=== PATIENT | male | born 1955 | race Caucasian/White ===

== ENCOUNTER 2019-10-22 07:40 | Inpatient (IN) | payer MEDICARE ==
[2019-10-17 08:58] LABS: BASOPHILS # (AUTO) 0.1 (0.0-0.1); BASOPHILS % 0.4 % (0.0-1.0); EOSINOPHILS # (AUTO) 0.4 (0.0-0.4); EOSINOPHILS % 3.3 % (0.0-6.0); HEMATOCRIT 40.8 % (38.2-49.6); HEMOGLOBIN 13.4 g/dL (14.0-18.0); LYMPHOCYTES # (AUTO) 1.8 (1.0-3.2); LYMPHOCYTES % 15.2 % (18.0-39.1); MEAN CORPUSCULAR HEMOGLOBIN 30.7 pg (28-32); MEAN CORPUSCULAR HGB CONC 32.8 g/dL (31-35); MEAN CORPUSCULAR VOLUME 93.4 fL (81-99); MONOCYTES # (AUTO) 1.2 (0.2-0.8); MONOCYTES % 9.8 % (4.4-11.3); NEUTROPHILS # (AUTO) 8.6 (2.1-6.9); NEUTROPHILS % 70.8 % (38.7-80.0); PLATELET COUNT 209 x10e3/uL (140-360); RED BLOOD COUNT 4.37 x10e6/uL (4.3-5.7); RED CELL DISTRIBUTION WIDTH 13.8 % (11.7-14.4)
[2019-10-17 09:14] LABS: ANION GAP 13.5 mmol/L (8-16); BLOOD UREA NITROGEN 14 mg/dL (7-26); BUN/CREATININE RATIO 14 (6-25); CALCIUM 9.3 mg/dL (8.4-10.2); CARBON DIOXIDE 24 mmol/L (22-29); CHLORIDE 101 mmol/L (98-107); CREATININE, SERUM 1.01 mg/dL (0.72-1.25); EST GLOMERULAR FILTRATION RATE > 60 ML/MIN (60-); GLUCOSE 131 mg/dL (74-118); POTASSIUM 4.5 mmol/L (3.5-5.1); SODIUM 134 mmol/L (136-145)
--- NOTE | 2019-10-17 10:01 | Diagnostic Imaging Report ---
EXAM: CHEST 2 VIEWS DATE: 10/17/2019 9:13 AM INDICATION: Preoperative evaluation COMPARISON: None FINDINGS: The trachea is midline. The lungs are symmetrically expanded without evidence for large focal consolidation, pneumothorax, or significant pleural effusion. The cardiomediastinal silhouette and pulmonary vasculature are within normal limits. No acute osseous abnormality is identified. The surrounding soft tissues are unremarkable. IMPRESSION: No acute cardiopulmonary process identified. Signed by: Dr. Ric Reynaga MD on 10/17/2019 9:57 AM
[~2019-10-22] VITALS: Ht 177.8 cm; Wt 138.8 kg
[~2019-10-22 07:40] MED LIST: ALLOPURINOL300 MG PO; AMIODARONE HCL200 MG PO; AMITIZA24 MCG PO; AMLODIPINE BESY10 MG PO; BUPIVACAINE 0.25% 30ML SDV INJ ONE; CARTIA XT240 MG PO; ELIQUIS5 MG PO; FUROSEMIDE40 MG PO; LISINOPRIL10 MG PO; LOVASTATIN20 MG PO; LYRICA100 MG PO; METFORMIN HCL500 M2 PO; TRELEGY ELLIPT1 EACH INH; TRILOGY INH
[2019-10-22] MEDS ORDERED: CEFAZOLIN SOD 1 GM/NS 50ML 100 ML IV ONE (08:11)
[2019-10-22] MEDS ORDERED: ONDANSETRON HCL INJ 2MG/ML 2ML 2 MG/ML VIAL IV PRN (10:00)
[2019-10-22] MEDS ORDERED: SCOPOLAMINE 1.5 MG PATCH TOP SCH (10:00)
[2019-10-22] MEDS ORDERED: FENTANYL CITRATE/PF 100MCG/2 ML INJ ONE ×2 (10:19→14:15)
[2019-10-22] MEDS ORDERED: ONDANSETRON HCL INJ 2MG/ML 2ML 2 MG/ML VIAL ONE ×2 (11:05→14:28)
[2019-10-22] MEDS ORDERED: PROMETHAZINE HCL (IM) 25 MG/ML VIAL IM ONE (11:05)
--- OUTSIDE RECORDS SUMMARY | 2019-10-22 11:52 | XMS REPORT | Continuity of Care Document ---
Author Author [facility] Organization [facility] Address [address] [place] [address] Phone Unavailable Care Team Providers Care [employer] Name Role Phone Geoffrey VELEZ Attphys Unavailable Payers Payer Name Policy Type Policy Number Effective Date Expiration Date S ource Problems This patient has no known problems. Allergies, Adverse Reactions, Alerts Allergy Name Allergy Type Status Severity Reaction(s) Onset Date Inacti ve Date Treating Clinician Comments Source No Known Allergies DA Active U 2018-10-15 00:00:00 [facility] Medications This patient has no known medications. Procedures This patient has no known procedures. Encounters Start Date/Time End Date/Time Encounter Type Admission Type Attendi [facility] [[email or web address] Care Department Encounter ID Source 2019-03-23 10:42:00 2019-03-23 10:42:00 Outpatient [facility] [address] [facility] Results Test Description Test Time Test Comments Results Result Comments Source CHEST 2 VIEWS 2019-10-17 09:57:00 [facility] [address] [place], [place] [address] Patient Name: HALEY ROACH SR MR #: [id number] : 1955 Age/Sex: 64/M Req #: [id number] Adm Physician: Ordered by: GRACE VELEZ MD Report #: [id number] Location: OR Room/Bed: Procedure: [id number] DX/CHEST 2 VIEWS Exam Date: 10/17/19 Exam Time: 912 REPORT STATUS: Signed EXAM: CHEST 2 VIEWS DATE: 10/17/2019 9:13 AM INDICATION: Preoperative evaluation COMPARISON: None FINDINGS: The trachea is midline. The lungs are symmetrically expanded without evidence for large focal consolidation, pneumothorax, or significant pleural effusion. The cardiomediastinal silhouette and pulmonary vasculature are within normal limits. No acute osseous abnormality is identified. The surrounding soft tissues are unremarkable. IMPRESSION: No acute cardiopulmonary process identified. Signed by: Dr. Ric Reynaga MD on 10/17/2019 9:57 AM Dictated By: RIC REYNAGA MD 6 Transcribed By: DONTE on 10/17/19956 COPY TO: GRACE VELEZ MD GLUBED 2018-12-11 09:53:00 Test Item GLUBED (test code = GLUBED) 109 MG/DL 70-110 N Performed by certified hot box operator at [facility] [id number] 07:01:00* Test Item Value Reference Range Interpretation Comments GLUBED (test code = GLUBED) 109 MG/DL 70-110 N Performed by certified hot box operator at [facility] - XR CHEST 2 [id number] 10:41:00 FAX: Jevon Bar MD [phone] [place]: St: PRE FAX: Elinor Henry [phone] FAX: Binta James Name: HALEY ROACH [facility] [place] : 1955 Age/S: 63/M [address] [place] [address] Unit #: [id number] Loc: [place] [address] Phys: Binta James NP Acct: [id number] Dis Date: Status: PRE SDC PH ONE #: [phone] Exam Date: 12/08/2018 1039 FAX #: [phone] Reason: PRE-OP RFA EXAMS: CPT CODE: [id number] XR CHEST 2 V 08000 2 view chest x- ray performed December 08, 2018. COMPARISON: November 24, 2018. CLINICAL HISTORY: PRE-OP RFA. DISCUSSION: 2 views/ films of the chest are submitted. Lungs are clear bilaterally. Cardiomed iastinal silhouette is normal. Osseous structures are within normal limits . IMPRESSION: Normal Chest X-ray. Electron ically Signed by Woody Harkins on 12/08/2018 at 1041 Reported and signed by: Angie Harkins M.D. CC: Jevon Bar MD; Elinor Alexander MD; Binta Escobar Technologist: RT Nereida(Jung) Trnscrd Date/Time/By: 12/08/2018 (1041) : By : BridgetNMG Orig Print D/T: S: 12/08/2018 (7839) PAGE 1 Signed Report BASIC METABOLIC [id number] 10:40:00* Test Item Value Reference Range Interpretation Comments SODIUM (test code = NA) 135 mEq/L 134-147 N POTASSIUM (test code = K) 4.0 mEq/L 3.4-5.0 N CHLORIDE (test code = CL) 98 mEq/L 100-108 L CARBON DIOXIDE (test code = CO2) 30 mEq/L 21-33 N ANION GAP (test code = GAP) 11 0-20 N GLUCOSE (test code = GLU) 219 mg/dL 70-110 H BLOOD UREA NITROGEN (test code = BUN) 20 mg/dL 7-18 H GLOMERULAR FILTRATION RATE (test code = GFR) 61.3 80-90 L Units of measure = ml/min/1.73 m2 CREATININE (test code = CREAT) 1.2 mg/dL 0.6-1.3 N CALCIUM (test code = CA) 8.6 mg/dL 8.0-10.5 N BASIC METABOLIC [id number] 10:30:00* Test Item Value Reference Range Interpretation Comments SODIUM (test code = NA) 135 mEq/L 134-147 N POTASSIUM (test code = K) 4.0 mEq/L 3.4-5.0 N CHLORIDE (test code = CL) 98 mEq/L 100-108 L CARBON DIOXIDE (test code = CO2) 30 mEq/L 21-33 N ANION GAP (test code = GAP) 11 0-20 N GLUCOSE (test code = GLU) 219 mg/dL 70-110 H BLOOD UREA NITROGEN (test code = BUN) 20 mg/dL 7-18 H GLOMERULAR FILTRATION RATE (test code = GFR) 80-90 CREATININE (test code = CREAT) mg/dL 0.6-1.3 CALCIUM (test code = CA) 8.6 mg/dL 8.0-10.5 N CBC W/AUTO [id number] 10:18:00* Test Item Value Reference Range Interpretation Comments WHITE BLOOD CELL (test code = WBC) 11.57 x10 3/uL 4.5-11.0 H RED BLOOD CELL (test code = RBC) 4.05 x10 6/uL 4.00-5.60 N HEMOGLOBIN (test code = HGB) 12.5 g/dL 12.5-16.9 N HEMATOCRIT (test code = HCT) 38.8 % 37.5-50.7 N MEAN CELL VOLUME (test code = MCV) 95.8 fL 81.0-99.0 N MEAN CELL HGB (test code = MCH) 30.9 pg 27.0-33.0 N MEAN CELL HGB CONCETRATION (test code = MCHC) 32.2 g/dL 33.0-37. 0 L RED CELL DISTRIBUTION WIDTH CV (test code = RDW) 14.3 % 11.5- 14.5 N RED CELL DISTRIBUTION WIDTH SD (test code = RDW-SD) 50.4 fL 37 .0-54.0 N PLATELET COUNT (test code = PLT) 186 x10 3/uL 150-400 N MEAN PLATELET VOLUME (test code = MPV) 10.2 fL 7.0-9.0 H NEUTROPHIL % (test code = NT%) 73.2 % 56.0-77.0 N IMMATURE GRANULOCYTE % (test code = IG%) 0.8 % 0.0-2.0 N LYMPHOCYTE % (test code = LY%) 18.0 % 14.0-32.0 N MONOCYTE % (test code = MO%) 7.3 % 4.8-9.0 N EOSINOPHIL % (test code = EO%) 0.5 % 0.3-3.7 N BASOPHIL % (test code = BA%) 0.2 % 0.0-2.0 N NUCLEATED RBC % (test code = NRBC%) 0.0 % 0-0 N NEUTROPHIL # (test code = NT#) 8.47 x10 3/uL 2.0-7.6 H IMMATURE GRANULOCYTE # (test code = IG#) 0.09 x10 3/uL 0.00-0.03 H LYMPHOCYTE # (test code = LY#) 2.08 x10 3/uL 1.0-3.8 N MONOCYTE # (test code = MO#) 0.85 x10 3/uL 0.1-0.8 H EOSINOPHIL # (test code = EO#) 0.06 x10 3/uL 0.0-0.2 N BASOPHIL # (test code = BA#) 0.02 x10 3/uL 0.0-0.2 N NUCLEATED RBC # (test code = NRBC#) 0.00 x10 3/uL 0.0-0.1 N MANUAL DIFF REQUIRED (test code = MDIFF) NO [id number] 12:07:00* Test Item Value Reference Range Interpretation Comments GLUBED (test code = GLUBED) 165 mg/dL 70-110 H BASIC METABOLIC [id number] 08:04:00* Test Item Value Reference Range Interpretation Comments SODIUM (test code = NA) 142 mmol/l 134.0-147.0 N POTASSIUM (test code = K) 4.5 mmol/L 3.6-5.2 N CHLORIDE (test code = CL) 106 mmol/l 98.0-107.0 N CARBON DIOXIDE (test code = CO2) 29.5 mmol/l 21.0-33.0 N ANION GAP (test code = GAP) 11.0 0-20 N GLUCOSE (test code = GLU) 153 mg/dl 70.0-110.0 H BLOOD UREA NITROGEN (test code = BUN) 32 mg/dl 7.0-18.0 H CREATININE (test code = CREAT) 0.87 mg/dL 0.60-1.30 N GFR NON BLACK (test code = GFRNONBLACK) 94 mL/min 80-90 H GFR BLACK (test code = GFRBLACK) 114 mL/min 97-109 H CALCIUM (test code = CA) 8.8 mg/dl 8.0-10.5 N CBC W/AUTO [id number] 08:04:00* Test Item Value Reference Range Interpretation Comments WHITE BLOOD CELL (test code = WBC) 17.6 K/mm3 4.5-11.0 H RED BLOOD CELL (test code = RBC) 3.97 M/mm3 4.40-5.90 L HEMOGLOBIN (test code = HGB) 12.2 gm/dL 13.0-17.0 L HEMATOCRIT (test code = HCT) 37.6 % 36.0-48.0 N MEAN CELL VOLUME (test code = MCV) 94.7 UM3 80.0-94.0 H MEAN CELL HGB (test code = MCH) 30.7 UUG 25.5-32.5 N MEAN CELL HGB CONCETRATION (test code = MCHC) 32.4 gm/dL 29.0-35. 5 N RED CELL DISTRIBUTION WIDTH (test code = RDW) 14.2 % 11.5-15. 0 N RED CELL DISTRIBUTION WIDTH SD (test code = RDW-SD) 49.2 fL 34 .8-50.2 N PLATELET COUNT (test code = PLT) 198 K/mm3 150-400 N MEAN PLATELET VOLUME (test code = MPV) 10.4 fl 7.4-10.4 N NEUTROPHIL % (test code = NT%) 86.5 % 49.0-76.0 H IMMATURE GRANULOCYTE % (test code = IG%) 1.2 % 0.0-0.4 H LYMPHOCYTE % (test code = LY%) 7.6 % 23.0-38.0 L MONOCYTE % (test code = MO%) 4.6 % 1.0-10.0 N EOSINOPHIL % (test code = EO%) 0.0 % 1.0-5.0 L BASOPHIL % (test code = BA%) 0.1 % 0.0-1.0 N NEUTROPHIL # (test code = NT#) 15.2 K/mm3 2.4-6.3 H IMMATURE GRANULOCYTE # (test code = IG#) 0.21 x10 3/uL 0.00-0.07 H LYMPHOCYTE # (test code = LY#) 1.3 K/mm3 1.2-4.0 N MONOCYTE # (test code = MO#) 0.8 K/mm3 0.0-0.6 H EOSINOPHIL # (test code = EO#) 0.0 K/MM3 0.0-0.7 N BASOPHIL # (test code = BA#) 0.0 K/mm3 0.0-0.2 N [id number] 07:36:00* Test Item Value Reference Range Interpretation Comments GLUBED (test code = GLUBED) 144 mg/dL 70-110 H [id number] 07:29:00* Test Item Value Reference Range Interpretation Comments GLUBED (test code = GLUBED) 136 mg/dL 70-110 H [id number] 21:23:00* Test Item Value Reference Range Interpretation Comments GLUBED (test code = GLUBED) 157 mg/dL 70-110 H [id number] 16:21:00* Test Item Value Reference Range Interpretation Comments GLUBED (test code = GLUBED) 228 mg/dL 70-110 H [id number] 11:41:00* Test Item Value Reference Range Interpretation Comments GLUBED (test code = GLUBED) 190 mg/dL 70-110 H [id number] 07:46:00* Test Item Value Reference Range Interpretation Comments GLUBED (test code = GLUBED) 170 mg/dL 70-110 H [id number] 07:11:00* Test Item Value Reference Range Interpretation Comments HGBA1C% (test code = HGBA1C%) 6.1 %A1C 4.8-6.0 H ESTIMATED AVERAGE GLUCOSE (test code = EAG) 128 MG/DL BASIC METABOLIC [id number] 06:58:00* Test Item Value Reference Range Interpretation Comments SODIUM (test code = NA) 139 mmol/l 134.0-147.0 N POTASSIUM (test code = K) 4.2 mmol/L 3.6-5.2 N CHLORIDE (test code = CL) 102 mmol/l 98.0-107.0 N CARBON DIOXIDE (test code = CO2) 27.3 mmol/l 21.0-33.0 N ANION GAP (test code = GAP) 13.9 0-20 N GLUCOSE (test code = GLU) 174 mg/dl 70.0-110.0 H BLOOD UREA NITROGEN (test code = BUN) 29 mg/dl 7.0-18.0 H CREATININE (test code = CREAT) 0.98 mg/dL 0.60-1.30 N GFR NON BLACK (test code = GFRNONBLACK) 82 mL/min 80-90 N GFR BLACK (test code = GFRBLACK) 99 mL/min 97-109 N CALCIUM (test code = CA) 8.9 mg/dl 8.0-10.5 N CBC W/AUTO [id number] 06:57:00* Test Item Value Reference Range Interpretation Comments WHITE BLOOD CELL (test code = WBC) 18.2 K/mm3 4.5-11.0 H RED BLOOD CELL (test code = RBC) 4.18 M/mm3 4.40-5.90 L HEMOGLOBIN (test code = HGB) 12.6 gm/dL 13.0-17.0 L HEMATOCRIT (test code = HCT) 39.2 % 36.0-48.0 N MEAN CELL VOLUME (test code = MCV) 93.8 UM3 80.0-94.0 N MEAN CELL HGB (test code = MCH) 30.1 UUG 25.5-32.5 N MEAN CELL HGB CONCETRATION (test code = MCHC) 32.1 gm/dL 29.0-35. 5 N RED CELL DISTRIBUTION WIDTH (test code = RDW) 13.9 % 11.5-15. 0 N RED CELL DISTRIBUTION WIDTH SD (test code = RDW-SD) 48.3 fL 34 .8-50.2 N PLATELET COUNT (test code = PLT) 204 K/mm3 150-400 N MEAN PLATELET VOLUME (test code = MPV) 10.5 fl 7.4-10.4 H NEUTROPHIL % (test code = NT%) 87.6 % 49.0-76.0 H IMMATURE GRANULOCYTE % (test code = IG%) 0.8 % 0.0-0.4 H LYMPHOCYTE % (test code = LY%) 6.9 % 23.0-38.0 L MONOCYTE % (test code = MO%) 4.5 % 1.0-10.0 N EOSINOPHIL % (test code = EO%) 0.0 % 1.0-5.0 L BASOPHIL % (test code = BA%) 0.2 % 0.0-1.0 N NEUTROPHIL # (test code = NT#) 16.0 K/mm3 2.4-6.3 H IMMATURE GRANULOCYTE # (test code = IG#) 0.14 x10 3/uL 0.00-0.07 H LYMPHOCYTE # (test code = LY#) 1.3 K/mm3 1.2-4.0 N MONOCYTE # (test code = MO#) 0.8 K/mm3 0.0-0.6 H EOSINOPHIL # (test code = EO#) 0.0 K/MM3 0.0-0.7 N BASOPHIL # (test code = BA#) 0.0 K/mm3 0.0-0.2 N [id number] 20:50:00* Test Item Value Reference Range Interpretation Comments GLUBED (test code = GLUBED) 263 mg/dL 70-110 H PROCALCITONIN (PCT)2018-11-24 19:31:00* Test Item Value Reference Range Interpretation Comments PROCALCITONIN (PCT) (test code = PROCAL) 0.28 ng/mL 0.00-0.05 H PROCALCITONIN (PCT) NORMAL RANGE (ADULT): <0.05 NG/ML. * a concentration <0.5 ng/mL represents a low risk of severe sepsis and/or septic shock.* a concentration >2 ng/mL represents a high risk of severe sepsis and/or septic shock.Nevertheless, concentrations <0.5 ng/mL do not exclude aninfection, on account of localized infections (withoutsystemic signs) which can be associated with such lowconcentrations, or a systemic infection in its initialstages (< 6 hours). Furthermore, increased procalcitonincan occur without infection. PCT concentrations between 0.5and 2.0 ng/mL should be interpreted taking into account thepatient's history. It is recommended to retest PCT within6-24 hours if any concentrations <2 ng/mL are obtained. PROCALCITONIN (PCT)2018-11-24 19:27:00* Test Item Value Reference Range Interpretation Comments PROCALCITONIN (PCT) (test code = PROCAL) 0.28 ng/mL 0.00-0.05 H PROCALCITONIN (PCT) NORMAL RANGE (ADULT): <0.05 NG/ML. * a concentration <0.5 ng/mL represents a low risk of severe sepsis and/or septic shock.* a concentration >2 ng/mL represents a high risk of severe sepsis and/or septic shock.Nevertheless, concentrations <0.5 ng/mL do not exclude aninfection, on account of localized infections (withoutsystemic signs) which can be associated with such lowconcentrations, or a systemic infection in its initialstages (< 6 hours). Furthermore, increased procalcitonincan occur without infection. PCT concentrations between 0.5and 2.0 ng/mL should be interpreted taking into account thepatient's history. It is recommended to retest PCT within6-24 hours if any concentrations <2 ng/mL are obtained. [id number] 18:07:00* Test Item Value Reference Range Interpretation Comments GLUBED (test code = GLUBED) 294 mg/dL 70-110 H [id number] 17:52:00* Test Item Value Reference Range Interpretation Comments GLUBED (test code = GLUBED) 314 mg/dL 70-110 H PROCALCITONIN (PCT)2018-11-24 15:17:00* Test Item Value Reference Range Interpretation Comments PROCALCITONIN (PCT) (test code = PROCAL) 0.31 ng/mL 0.00-0.05 H PROCALCITONIN (PCT) NORMAL RANGE (ADULT): <0.05 NG/ML. * a concentration <0.5 ng/mL represents a low risk of severe sepsis and/or septic shock.* a concentration >2 ng/mL represents a high risk of severe sepsis and/or septic shock.Nevertheless, concentrations <0.5 ng/mL do not exclude aninfection, on account of localized infections (withoutsystemic signs) which can be associated with such lowconcentrations, or a systemic infection in its initialstages (< 6 hours). Furthermore, increased procalcitonincan occur without infection. PCT concentrations between 0.5and 2.0 ng/mL should be interpreted taking into account thepatient's history. It is recommended to retest PCT within6-24 hours if any concentrations <2 ng/mL are obtained. PROCALCITONIN (PCT)2018-11-24 15:04:00* Test Item Value Reference Range Interpretation Comments PROCALCITONIN (PCT) (test code = PROCAL) 0.31 ng/mL 0.00-0.05 H PROCALCITONIN (PCT) NORMAL RANGE (ADULT): <0.05 NG/ML. * a concentration <0.5 ng/mL represents a low risk of severe sepsis and/or septic shock.* a concentration >2 ng/mL represents a high risk of severe sepsis and/or septic shock.Nevertheless, concentrations <0.5 ng/mL do not exclude aninfection, on account of localized infections (withoutsystemic signs) which can be associated with such lowconcentrations, or a systemic infection in its initialstages (< 6 hours). Furthermore, increased procalcitonincan occur without infection. PCT concentrations between 0.5and 2.0 ng/mL should be interpreted taking into account thepatient's history. It is recommended to retest PCT within6-24 hours if any concentrations <2 ng/mL are obtained. [id number] 11:44:00* Test Item Value Reference Range Interpretation Comments GLUBED (test code = GLUBED) 261 mg/dL 70-110 H [id number] 11:34:00* Test Item Value Reference Range Interpretation Comments TROPONIN-I (test code = TROPI) <0.02 NG/ML 0.00-0.06 N REFERENCE RANGE TROPONIN I HEALTHY INDIVIDUALS: <0.06 ng/mL R/O ISCHEMIA: 0.07 - 0.60 ng/mL CUT-OFF RANGE FOR AMI: 0.60 - 1.5 ng/mL [id number] 08:42:00* Test Item Value Reference Range Interpretation Comments TROPONIN-I (test code = TROPI) <0.02 NG/ML 0.00-0.06 N REFERENCE RANGE TROPONIN I HEALTHY INDIVIDUALS: <0.06 ng/mL R/O ISCHEMIA: 0.07 - 0.60 ng/mL CUT-OFF RANGE FOR AMI: 0.60 - 1.5 ng/mL [id number] 08:02:00* Test Item Value Reference Range Interpretation Comments GLUBED (test code = GLUBED) 155 mg/dL 70-110 H CBC W/MANUAL [id number] 05:59:00* Test Item Value Reference Range Interpretation Comments WHITE BLOOD CELL (test code = WBC) 21.3 K/mm3 4.5-11.0 H RED BLOOD CELL (test code = RBC) 4.71 M/mm3 4.40-5.90 N HEMOGLOBIN (test code = HGB) 14.5 gm/dL 13.0-17.0 N HEMATOCRIT (test code = HCT) 44.8 % 36.0-48.0 N MEAN CELL VOLUME (test code = MCV) 95.1 UM3 80.0-94.0 H MEAN CELL HGB (test code = MCH) 30.8 UUG 25.5-32.5 N MEAN CELL HGB CONCETRATION (test code = MCHC) 32.4 gm/dL 29.0-35. 5 N RED CELL DISTRIBUTION WIDTH (test code = RDW) 14.4 % 11.5-15. 0 N RED CELL DISTRIBUTION WIDTH SD (test code = RDW-SD) 50.1 fL 34 .8-50.2 N PLATELET COUNT (test code = PLT) 217 K/mm3 150-400 N MEAN PLATELET VOLUME (test code = MPV) 10.0 fl 7.4-10.4 N NEUTROPHIL % (test code = NT%) 81.3 % 49.0-76.0 H IMMATURE GRANULOCYTE % (test code = IG%) 0.5 % 0.0-0.4 H LYMPHOCYTE % (test code = LY%) 9.9 % 23.0-38.0 L MONOCYTE % (test code = MO%) 8.1 % 1.0-10.0 N EOSINOPHIL % (test code = EO%) 0.0 % 1.0-5.0 L BASOPHIL % (test code = BA%) 0.2 % 0.0-1.0 N NEUTROPHIL # (test code = NT#) 17.3 K/mm3 2.4-6.3 H IMMATURE GRANULOCYTE # (test code = IG#) 0.10 x10 3/uL 0.00-0.07 H LYMPHOCYTE # (test code = LY#) 2.1 K/mm3 1.2-4.0 N MONOCYTE # (test code = MO#) 1.7 K/mm3 0.0-0.6 H EOSINOPHIL # (test code = EO#) 0.0 K/MM3 0.0-0.7 N BASOPHIL # (test code = BA#) 0.1 K/mm3 0.0-0.2 N TOTAL CELLS COUNTED (test code = TCC) 100 #CELLS SEGMENTED NEUTROPHILS (test code = SEG) 85 % 50.0-70.0 H BAND NEUTROPHIL (test code = BAND) 1 % 1.0-4.0 N LYMPHOCYTE (test code = LYMPH) 6 % 20-40 L MONOCYTE (test code = MON) 8 % 0-10 N MORPHOLOGY COMMENT (test code = MOC) NM PLATELET ESTIMATE (test code = PLTEST) ADQ PLATELET MORPHOLOGY (test code = PLTMORPH) NORMAL UA RFLX MICR CULT IF [id number] 05:54:00* Test Item Value Reference Range Interpretation Comments UA GLUCOSE DIPSTICK (test code = DGLUU) NORMAL mg/dl NORMAL UA BILIRUBIN DIPSTICK (test code = BILU) NEGATIVE mg/dL NEGATIVE UA KETONE DIPSTICK (test code = KETU) NEGATIVE mg/dl NEGATIVE UA SPECIFIC GRAVITY (test code = SGU) 1.020 1.000-1.030 UA BLOOD DIPSTICK (test code = ALEC) NEGATIVE Martin/micL NEGATIVE UA PH DIPSTICK (test code = KIMMIE) 5.0 5.0-9.0 UA PROTEIN DIPSTICK (test code = PROU) 15 mg/dl mg/dl NEGATIVE A UA UROBILINIOGEN DIPSTICK (test code = URO) NORMAL mg/dl NORMAL UA NITRITE DIPSTICK (test code = GREGG) NEGATIVE NEGATIVE UA LEUKOCYTE ESTERASE DIPSTICK (test code = LEUU) NEGATIVE True/micL NEGATIVE UA WBC (test code = WBCU) 0-3 WBC/HPF NONE UA SQUAMOUS CELLS (test code = SQU) 0-2 #/hpf UA CULTURE NEEDED? (test code = UACULT) NO, WBC<10 Criteria Culture Chk Criteria not met, Urine Culture cancelled. Indication for culture: Sev. Sepsis-no other srcSpecimen Description: CLEAN CATCHDRUGS OF ABUSE SCREEN [id number] 05:53:00* Test Item Value Reference Range Interpretation Comments URN COCAINE (test code = COCAURN) NEGATIVE NEGATIVE Cocaine cut-off concentration: 300 ng/mL URN CANNABINOIDS (test code = CANNABURN) NEGATIVE NEGATIVE Cannabinoids cut- off concentration: 50 ng/mL URN AMPHETAMINE (test code = AMPHETURN) NEGATIVE NEGATIVE Amphetamine cut-off concentration: 1000 ng/mL URN BARBITURATE (test code = BARBITURN) NEGATIVE NEGATIVE Barbiturate cut-off concentration: 200 ng/mL URN BENZODIAZEPINE (test code = BENZOURN) NEGATIVE NEGATIVE Benzodiazepine cut-off concentration: 200 ng/mL URN OPIATES (test code = OPIATURN) NEGATIVE NEGATIVE Opiates cut-off concentration: 200 ng/mL URN PHENCYCLIDINE (PCP) (test code = PHENCURN) NEGATIVE NEGATIV E Phencyclidine(PCP) cut-off concentration: 25 ng/ml URN METHADONE (test code = METHAURN) NEGATIVE NEGATIVE Methadone cut-off concentration: 300 ng/mL UA RFLX MICR CULT IF [id number] 05:52:00* Test Item Value Reference Range Interpretation Comments UA GLUCOSE DIPSTICK (test code = DGLUU) NORMAL mg/dl NORMAL UA BILIRUBIN DIPSTICK (test code = BILU) NEGATIVE mg/dL NEGATIVE UA KETONE DIPSTICK (test code = KETU) NEGATIVE mg/dl NEGATIVE UA SPECIFIC GRAVITY (test code = SGU) 1.020 1.000-1.030 UA BLOOD DIPSTICK (test code = ALEC) NEGATIVE Martin/micL NEGATIVE UA PH DIPSTICK (test code = KIMMIE) 5.0 5.0-9.0 UA PROTEIN DIPSTICK (test code = PROU) 15 mg/dl mg/dl NEGATIVE A UA UROBILINIOGEN DIPSTICK (test code = URO) NORMAL mg/dl NORMAL UA NITRITE DIPSTICK (test code = GREGG) NEGATIVE NEGATIVE UA LEUKOCYTE ESTERASE DIPSTICK (test code = LEUU) NEGATIVE True/micL NEGATIVE UA WBC (test code = WBCU) WBC/HPF NONE UA CULTURE NEEDED? (test code = UACULT) Criteria Culture Chk Indication for culture: Sev. Sepsis-no other srcSpecimen Description: CLEAN CATCHARTERIAL BLOOD [id number] 04:58:00* Test Item Value Reference Range Interpretation Comments ARTERIAL BLOOD GAS PH (test code = PHA) 7.412 7.350-7.450 N ARTERIAL BLOOD GAS PCO2 (test code = PCO2A) 37.9 mmHg 35.0-45.0 N ARTERIAL BLOOD GAS PO2 (test code = PO2A) 62.3 mmHg >80.0 L BICARBONATE TOTAL HCO3 (test code = HCO3) 23.6 MMOL/L 22.0-26.0 N BASE EXCESS (test code = LILLIE) -0.7 MMOL/L -4.0-4.0 N ABG O2 SATURATION (test code = SATA) 93.8 % 92.0-99.0 N FIO2 (test code = FIO2A) 40.0 ABG VENT MODE (test code = MODEA) AVAPS ABG VENT RESP RATE (test code = RRA) 12.0 /MIN ABG TIDAL VOLUME (test code = TVA) 600.0 mL ABG PEEP (test code = PEEPA) 6.0 cmH2O ABG SITE (test code = SITEA) LR ALLENS TEST (test code = ALLENS) Yes TOTAL HGB (test code = THB) 14.6 g/dL 12.0-16.0 N CARBOXYHEMOGLOBIN (test code = HOHGBT) 1.3 % THgb 0.0-1.5 N METHEMOGLOBIN (test code = METHGB) 0.2 % 0.0-1.5 N NORMAL <2.0POTENTIALLY TOXIC >20.0 - XR CHEST 1 [id number] 04:58:00 FAX: Elinor Henry [phone] [place]: St: REG FAX: Jun Ramirez MD Name: DOCMARYCHUYE [facility] : 1955 Age/S: 63/M [address] Unit #: [id number] Loc: [place], [place] Phys: [place] [id number] Acct: [id number] Dis Date: Status: REG ER PHONE #: [phone] Exam Date: 11/24/2018430 FAX #: [phone] Reason: Code SEPSIS EXAMS: CPT CODE: [id number] XR CHEST 1 V 66923 AFTER HOURS SERVICE ON: 11/24/2018 4:58 AM AP Portable Chest Location Code M12 HISTORY: Code SEPSIS FINDINGS: There are no infiltrates. There are no pleural effusions. There is no pneumothorax. Cardiac silhouette and mediastinum appear within normal limits. IMPRESSION: No active pulmonary findings. at 6842 Reported and signed by: Sarahi Garcia M.D. CC: Elinor Alexander MD; Jun Ramirez MD Technologist: [facility] Date/Time/By: 11/24/2018 (0458) : By: [email or web address] PAGE 1 Signed Report FAX: Elinor Henry [phone] [place]: St: [facility] FAX: Jun Ramirez MD Name: HALEY ROACH [facility] : 1955 Age/S: 63/M [address] Unit #: [id number] Loc: [place], [place]: [place] [id number] Acct: [id number] Dis Date: Status: REG ER PHON E #: [phone] Exam Date: 11/24/2018430 FAX # : [phone] Reason: Code SEPSIS EX AMS: CPT CODE: [id number] XR C HEST 1 V 73396 <Continued> Orig Print D/T: S: 11/24/2018 (2198) PAGE 2 Signed Report D-DIMER/[id number] 04:56:00* Test Item Value Reference Range Interpretation Comments D-DIMER/FSP (test code = DDIMER) 221 ng/mL 200.0-230.0 N Per table inspector recommendation, the CUT OFFfor the Diagnosis of PE or DVT with a 100% SENSITIVITY &100% PREDICTIVE VALUE is suggested to be 230 ng/mL D- DIMERUNIT(DDU). D-DIMER RESULTS MAY BE AFFECTED BY:1. HEMOGLOBIN > 100 mg/dL2. BILIRUBIN > 10 mg/dL3. TRIGLYCERIDES > 1500 mg/dL4. The presence of RHEUMATIOID FACTOR may produce an overestimation of the test result. BASIC METABOLIC [id number] 04:45:00* Test Item Value Reference Range Interpretation Comments SODIUM (test code = NA) 137 mmol/l 134.0-147.0 N POTASSIUM (test code = K) 4.8 mmol/L 3.6-5.2 N CHLORIDE (test code = CL) 98 mmol/l 98.0-107.0 N CARBON DIOXIDE (test code = CO2) 29.7 mmol/l 21.0-33.0 N ANION GAP (test code = GAP) 14.1 0-20 N GLUCOSE (test code = GLU) 141 mg/dl 70.0-110.0 H BLOOD UREA NITROGEN (test code = BUN) 21 mg/dl 7.0-18.0 H CREATININE (test code = CREAT) 1.20 mg/dL 0.60-1.30 N GFR NON BLACK (test code = GFRNONBLACK) 65 mL/min 80-90 L GFR BLACK (test code = GFRBLACK) 79 mL/min 97-109 L CALCIUM (test code = CA) 8.7 mg/dl 8.0-10.5 N HEPATIC FUNCTION PANEL [id number] 04:45:00* Test Item Value Reference Range Interpretation Comments TOTAL PROTEIN (test code = PROT) 7.3 gm/dL 6.4-8.2 N ALBUMIN (test code = ALB) 3.8 gm/dl 3.2-4.7 N BILIRUBIN TOTAL (test code = BILT) 0.9 mg/dl 0.0-1.0 N BILIRUBIN DIRECT (test code = BILD) 0.2 mg/dl 0.0-0.3 N SGOT/AST (test code = AST) 19 Units/L 15.0-37.0 N SGPT/ALT (test code = ALT) 31 Units/L 12.0-78.0 N ALKALINE PHOSPHATASE TOTAL (test code = ALKP) 90 Units/L 50.0-136 .0 N [id number] 04:45:00* Test Item Value Reference Range Interpretation Comments LIPASE (test code = LIP) 89 Units/L 65.0-230.0 N B-TYPE NATRIURETIC [id number] 04:45:00* Test Item Value Reference Range Interpretation Comments B-TYPE NATRIURETIC PEPTIDE (test code = BNP) 46 PG/ML 5-100 N [id number] 04:45:00* Test Item Value Reference Range Interpretation Comments TROPONIN-I (test code = TROPI) <0.02 NG/ML 0.00-0.06 N REFERENCE RANGE TROPONIN I HEALTHY INDIVIDUALS: <0.06 ng/mL R/O ISCHEMIA: 0.07 - 0.60 ng/mL CUT-OFF RANGE FOR AMI: 0.60 - 1.5 ng/mL BASIC METABOLIC [id number] 04:40:00* Test Item Value Reference Range Interpretation Comments SODIUM (test code = NA) 137 mmol/l 134.0-147.0 N POTASSIUM (test code = K) 4.8 mmol/L 3.6-5.2 N CHLORIDE (test code = CL) 98 mmol/l 98.0-107.0 N CARBON DIOXIDE (test code = CO2) 29.7 mmol/l 21.0-33.0 N ANION GAP (test code = GAP) 14.1 0-20 N GLUCOSE (test code = GLU) 141 mg/dl 70.0-110.0 H BLOOD UREA NITROGEN (test code = BUN) 21 mg/dl 7.0-18.0 H CREATININE (test code = CREAT) 1.20 mg/dL 0.60-1.30 N GFR NON BLACK (test code = GFRNONBLACK) 65 mL/min 80-90 L GFR BLACK (test code = GFRBLACK) 79 mL/min 97-109 L CALCIUM (test code = CA) 8.7 mg/dl 8.0-10.5 N HEPATIC FUNCTION PANEL [id number] 04:40:00* Test Item Value Reference Range Interpretation Comments TOTAL PROTEIN (test code = PROT) 7.3 gm/dL 6.4-8.2 N ALBUMIN (test code = ALB) 3.8 gm/dl 3.2-4.7 N BILIRUBIN TOTAL (test code = BILT) 0.9 mg/dl 0.0-1.0 N BILIRUBIN DIRECT (test code = BILD) 0.2 mg/dl 0.0-0.3 N SGOT/AST (test code = AST) 19 Units/L 15.0-37.0 N SGPT/ALT (test code = ALT) 31 Units/L 12.0-78.0 N ALKALINE PHOSPHATASE TOTAL (test code = ALKP) 90 Units/L 50.0-136 .0 N [id number] 04:40:00* Test Item Value Reference Range Interpretation Comments LIPASE (test code = LIP) 89 Units/L 65.0-230.0 N B-TYPE NATRIURETIC [id number] 04:40:00* Test Item Value Reference Range Interpretation Comments B-TYPE NATRIURETIC PEPTIDE (test code = BNP) PG/ML 5-100 [id number] 04:40:00* Test Item Value Reference Range Interpretation Comments TROPONIN-I (test code = TROPI) <0.02 NG/ML 0.00-0.06 N REFERENCE RANGE TROPONIN I HEALTHY INDIVIDUALS: <0.06 ng/mL R/O ISCHEMIA: 0.07 - 0.60 ng/mL CUT-OFF RANGE FOR AMI: 0.60 - 1.5 ng/mL BASIC METABOLIC [id number] 04:37:00* Test Item Value Reference Range Interpretation Comments SODIUM (test code = NA) 137 mmol/l 134.0-147.0 N POTASSIUM (test code = K) 4.8 mmol/L 3.6-5.2 N CHLORIDE (test code = CL) 98 mmol/l 98.0-107.0 N CARBON DIOXIDE (test code = CO2) 29.7 mmol/l 21.0-33.0 N ANION GAP (test code = GAP) 14.1 0-20 N GLUCOSE (test code = GLU) mg/dl 70.0-110.0 BLOOD UREA NITROGEN (test code = BUN) mg/dl 7.0-18.0 CREATININE (test code = CREAT) mg/dL 0.60-1.30 GFR NON BLACK (test code = GFRNONBLACK) mL/min 80-90 GFR BLACK (test code = GFRBLACK) mL/min 97-109 CALCIUM (test code = CA) mg/dl 8.0-10.5 HEPATIC FUNCTION PANEL [id number] 04:37:00* Test Item Value Reference Range Interpretation Comments TOTAL PROTEIN (test code = PROT) gm/dL 6.4-8.2 ALBUMIN (test code = ALB) gm/dl 3.2-4.7 BILIRUBIN TOTAL (test code = BILT) mg/dl 0.0-1.0 BILIRUBIN DIRECT (test code = BILD) mg/dl 0.0-0.3 SGOT/AST (test code = AST) Units/L 15.0-37.0 SGPT/ALT (test code = ALT) Units/L 12.0-78.0 ALKALINE PHOSPHATASE TOTAL (test code = ALKP) Units/L 50.0-136 .0 [id number] 04:37:00* Test Item Value Reference Range Interpretation Comments LIPASE (test code = LIP) Units/L 65.0-230.0 B-TYPE NATRIURETIC [id number] 04:37:00* Test Item Value Reference Range Interpretation Comments B-TYPE NATRIURETIC PEPTIDE (test code = BNP) PG/ML 5-100 [id number] 04:37:00* Test Item Value Reference Range Interpretation Comments TROPONIN-I (test code = TROPI) NG/ML 0.00-0.06 PROTHROMBIN [id number] 04:34:00* Test Item Value Reference Range Interpretation Comments PROTHROMBIN TIME PATIENT (test code = PTP) 15.4 SECONDS 9.9-12.8 H INTERNATIONAL NORMAL RATIO (test code = INR) 1.3 0.89-1.14 H THE INR IS TO BE USED ONLY FOR MONITORING ORAL ANTICOAGULANTTHERAPY. THE FOLLOWING ARE SUGGESTED RANGES FROM THEAMERICAN COLLEGE OF CHEST PHYSICIANS:INDICATION INR VALUEPROPHYLAXIS OF VENOUS THROMBOSIS (ORTHOPEDIC SURGERY) 2.0 - 3.0PROPHYLAXIS OF VENOUS THROMBOSIS (OTHER THAN HIGH-RISK SURGERY) 2.0 - 3.0TREATMENT OF DEEP VEIN THROMBOSIS OR PULMONARY EMBOLISM 2.0 - 3.0PREVENTION OF SYSTEMIC EMBOLISM TISSUE HEART VALVES 2.0 - 3.0 ACUTE MYOCARDIAL INFARCTION (TO PREVENT SYSTEMIC EMBOLISM) 2.0 - 3.0 ACUTE MYOCARDIAL INFARCTION (TO PREVENT RECURRENT INFARCT) 2.5 - 3.0 VALVULAR HEART DISEASE 2.0 - 3.0 ATRIAL FIBRILATION 2.0 - 3.0BILEAFLET MECHANICAL VALVE IN AORTIC POSITION 2.0 - 3.0MECHANICAL PROSTHETIC VALVES (HIGH RISK) 2.5 - 3.5PRESENCE OF LUPUS ANTICOAGULANT OR ANTIPHOSPHOLIPID ANTIBODIES 2.5 - 3.5 Is patient on anticoagulants? NTHROMBOPLASTIN TIME [id number] 04:34:00* Test Item Value Reference Range Interpretation Comments THROMBOPLASTIN TIME PARTIAL (test code = PTT) 28.50 SECONDS 25.86-3 6.07 N [facility] Therapeutic Range - APTT of 55.8-85.4 secondscorrelates with plasma heparin concentration of 0.2-0.4 u/mL New range effective - 05/16/2016 Is patient on anticoagulants? NTROPONIN I [id number] 04:32:00* Test Item Value Reference Range Interpretation Comments TROPONIN I RAPID (test code = TROPIRAP) 0.02 0.00-0.08 N Negative: <= 0.08 Positive: >= 0.09An elevated troponin value alone is not sufficient todiagnose a myocardial infarction. Rather, the patient'sclinical presentation (history, physical exam) and ECGshould be used in conjunction with troponin in thediagnostic evaluation of suspected myocardial infarction.A serial sampling protocol is recommended to facilitatethe identification of temporal changes in troponin levelscharacteristic of [place]. CBC W/MANUAL [id number] 04:30:00* Test Item Value Reference Range Interpretation Comments WHITE BLOOD CELL (test code = WBC) 21.3 K/mm3 4.5-11.0 H RED BLOOD CELL (test code = RBC) 4.71 M/mm3 4.40-5.90 N HEMOGLOBIN (test code = HGB) 14.5 gm/dL 13.0-17.0 N HEMATOCRIT (test code = HCT) 44.8 % 36.0-48.0 N MEAN CELL VOLUME (test code = MCV) 95.1 UM3 80.0-94.0 H MEAN CELL HGB (test code = MCH) 30.8 UUG 25.5-32.5 N MEAN CELL HGB CONCETRATION (test code = MCHC) 32.4 gm/dL 29.0-35. 5 N RED CELL DISTRIBUTION WIDTH (test code = RDW) 14.4 % 11.5-15. 0 N RED CELL DISTRIBUTION WIDTH SD (test code = RDW-SD) 50.1 fL 34 .8-50.2 N PLATELET COUNT (test code = PLT) 217 K/mm3 150-400 N MEAN PLATELET VOLUME (test code = MPV) 10.0 fl 7.4-10.4 N NEUTROPHIL % (test code = NT%) 81.3 % 49.0-76.0 H IMMATURE GRANULOCYTE % (test code = IG%) 0.5 % 0.0-0.4 H LYMPHOCYTE % (test code = LY%) 9.9 % 23.0-38.0 L MONOCYTE % (test code = MO%) 8.1 % 1.0-10.0 N EOSINOPHIL % (test code = EO%) 0.0 % 1.0-5.0 L BASOPHIL % (test code = BA%) 0.2 % 0.0-1.0 N NEUTROPHIL # (test code = NT#) 17.3 K/mm3 2.4-6.3 H IMMATURE GRANULOCYTE # (test code = IG#) 0.10 x10 3/uL 0.00-0.07 H LYMPHOCYTE # (test code = LY#) 2.1 K/mm3 1.2-4.0 N MONOCYTE # (test code = MO#) 1.7 K/mm3 0.0-0.6 H EOSINOPHIL # (test code = EO#) 0.0 K/MM3 0.0-0.7 N BASOPHIL # (test code = BA#) 0.1 K/mm3 0.0-0.2 N SEGMENTED NEUTROPHILS (test code = SEG) % 50.0-70.0 LYMPHOCYTE (test code = LYMPH) % 20-40 CBC W/MANUAL [id number] 04:30:00* Test Item Value Reference Range Interpretation Comments WHITE BLOOD CELL (test code = WBC) 21.3 K/mm3 4.5-11.0 H RED BLOOD CELL (test code = RBC) 4.71 M/mm3 4.40-5.90 N HEMOGLOBIN (test code = HGB) 14.5 gm/dL 13.0-17.0 N HEMATOCRIT (test code = HCT) 44.8 % 36.0-48.0 N MEAN CELL VOLUME (test code = MCV) 95.1 UM3 80.0-94.0 H MEAN CELL HGB (test code = MCH) 30.8 UUG 25.5-32.5 N MEAN CELL HGB CONCETRATION (test code = MCHC) 32.4 gm/dL 29.0-35. 5 N RED CELL DISTRIBUTION WIDTH (test code = RDW) 14.4 % 11.5-15. 0 N RED CELL DISTRIBUTION WIDTH SD (test code = RDW-SD) 50.1 fL 34 .8-50.2 N PLATELET COUNT (test code = PLT) 217 K/mm3 150-400 N MEAN PLATELET VOLUME (test code = MPV) 10.0 fl 7.4-10.4 N NEUTROPHIL % (test code = NT%) 81.3 % 49.0-76.0 H IMMATURE GRANULOCYTE % (test code = IG%) 0.5 % 0.0-0.4 H LYMPHOCYTE % (test code = LY%) 9.9 % 23.0-38.0 L MONOCYTE % (test code = MO%) 8.1 % 1.0-10.0 N EOSINOPHIL % (test code = EO%) 0.0 % 1.0-5.0 L BASOPHIL % (test code = BA%) 0.2 % 0.0-1.0 N NEUTROPHIL # (test code = NT#) 17.3 K/mm3 2.4-6.3 H IMMATURE GRANULOCYTE # (test code = IG#) 0.10 x10 3/uL 0.00-0.07 H LYMPHOCYTE # (test code = LY#) 2.1 K/mm3 1.2-4.0 N MONOCYTE # (test code = MO#) 1.7 K/mm3 0.0-0.6 H EOSINOPHIL # (test code = EO#) 0.0 K/MM3 0.0-0.7 N BASOPHIL # (test code = BA#) 0.1 K/mm3 0.0-0.2 N SEGMENTED NEUTROPHILS (test code = SEG) % 50.0-70.0 LYMPHOCYTE (test code = LYMPH) % 20-40 POC LACTIC [id number] 04:19:00* Test Item Value Reference Range Interpretation Comments POC LACTIC ACID (test code = POCLAC) 1.6 mmol/L 0.4-2.2 N [id number] 21:49:00* Test Item Value Reference Range Interpretation Comments GLUBED (test code = GLUBED) 135 mg/dL 70-110 H COMPREHENSIVE METABOLIC [id number] 06:48:00* Test Item Value Reference Range Interpretation Comments SODIUM (test code = NA) 136 mmol/l 134.0-147.0 N POTASSIUM (test code = K) 4.5 mmol/L 3.6-5.2 N CHLORIDE (test code = CL) 99 mmol/l 98.0-107.0 N CARBON DIOXIDE (test code = CO2) 29.8 mmol/l 21.0-33.0 N ANION GAP (test code = GAP) 11.7 0-20 N GLUCOSE (test code = GLU) 110 mg/dl 70.0-110.0 N BLOOD UREA NITROGEN (test code = BUN) 13 mg/dl 7.0-18.0 N CREATININE (test code = CREAT) 0.84 mg/dL 0.60-1.30 N GFR NON BLACK (test code = GFRNONBLACK) 98 mL/min 80-90 H GFR BLACK (test code = GFRBLACK) 119 mL/min 97-109 H TOTAL PROTEIN (test code = PROT) 7.2 gm/dL 6.4-8.2 N ALBUMIN (test code = ALB) 3.8 gm/dl 3.2-4.7 N CALCIUM (test code = CA) 9.0 mg/dl 8.0-10.5 N BILIRUBIN TOTAL (test code = BILT) 0.6 mg/dl 0.0-1.0 N SGOT/AST (test code = AST) 12 Units/L 15.0-37.0 L SGPT/ALT (test code = ALT) 25 Units/L 12.0-78.0 N ALKALINE PHOSPHATASE TOTAL (test code = ALKP) 96 Units/L 50.0-136 .0 N [id number] 06:48:00* Test Item Value Reference Range Interpretation Comments MAGNESIUM (test code = MAG) 1.8 mg/dl 1.8-2.4 N CBC W/AUTO [id number] 06:44:00* Test Item Value Reference Range Interpretation Comments WHITE BLOOD CELL (test code = WBC) 10.0 K/mm3 4.5-11.0 N RED BLOOD CELL (test code = RBC) 4.79 M/mm3 4.40-5.90 N HEMOGLOBIN (test code = HGB) 14.4 gm/dL 13.0-17.0 N HEMATOCRIT (test code = HCT) 45.9 % 36.0-48.0 N MEAN CELL VOLUME (test code = MCV) 95.8 UM3 80.0-94.0 H MEAN CELL HGB (test code = MCH) 30.1 UUG 25.5-32.5 N MEAN CELL HGB CONCETRATION (test code = MCHC) 31.4 gm/dL 29.0-35. 5 N RED CELL DISTRIBUTION WIDTH (test code = RDW) 13.9 % 11.5-15. 0 N RED CELL DISTRIBUTION WIDTH SD (test code = RDW-SD) 49.4 fL 34 .8-50.2 N PLATELET COUNT (test code = PLT) 203 K/mm3 150-400 N MEAN PLATELET VOLUME (test code = MPV) 10.3 fl 7.4-10.4 N NEUTROPHIL % (test code = NT%) 65.8 % 49.0-76.0 N IMMATURE GRANULOCYTE % (test code = IG%) 0.4 % 0.0-0.4 N LYMPHOCYTE % (test code = LY%) 21.5 % 23.0-38.0 L MONOCYTE % (test code = MO%) 9.5 % 1.0-10.0 N EOSINOPHIL % (test code = EO%) 2.4 % 1.0-5.0 N BASOPHIL % (test code = BA%) 0.4 % 0.0-1.0 N NEUTROPHIL # (test code = NT#) 6.6 K/mm3 2.4-6.3 H IMMATURE GRANULOCYTE # (test code = IG#) 0.04 x10 3/uL 0.00-0.07 N LYMPHOCYTE # (test code = LY#) 2.2 K/mm3 1.2-4.0 N MONOCYTE # (test code = MO#) 1.0 K/mm3 0.0-0.6 H EOSINOPHIL # (test code = EO#) 0.2 K/MM3 0.0-0.7 N BASOPHIL # (test code = BA#) 0.0 K/mm3 0.0-0.2 N COMPREHENSIVE METABOLIC [id number] 11:21:00* Test Item Value Reference Range Interpretation Comments SODIUM (test code = NA) 137 mmol/l 134.0-147.0 N POTASSIUM (test code = K) 4.2 mmol/L 3.6-5.2 N CHLORIDE (test code = CL) 100 mmol/l 98.0-107.0 N CARBON DIOXIDE (test code = CO2) 31.1 mmol/l 21.0-33.0 N ANION GAP (test code = GAP) 10.1 0-20 N GLUCOSE (test code = GLU) 181 mg/dl 70.0-110.0 H BLOOD UREA NITROGEN (test code = BUN) 14 mg/dl 7.0-18.0 N CREATININE (test code = CREAT) 0.91 mg/dL 0.60-1.30 N GFR NON BLACK (test code = GFRNONBLACK) 90 mL/min 80-90 N GFR BLACK (test code = GFRBLACK) 108 mL/min 97-109 N TOTAL PROTEIN (test code = PROT) 6.8 gm/dL 6.4-8.2 N ALBUMIN (test code = ALB) 3.7 gm/dl 3.2-4.7 N CALCIUM (test code = CA) 9.1 mg/dl 8.0-10.5 N BILIRUBIN TOTAL (test code = BILT) 0.4 mg/dl 0.0-1.0 N SGOT/AST (test code = AST) 13 Units/L 15.0-37.0 L SGPT/ALT (test code = ALT) 25 Units/L 12.0-78.0 N ALKALINE PHOSPHATASE TOTAL (test code = ALKP) 88 Units/L 50.0-136 .0 N VITAMIN [id number] 11:21:00* Test Item Value Reference Range Interpretation Comments VITAMIN B12 (test code = VITB12) 365 pg/mL 193-986 N THYROID STIMULATING [id number] 11:21:00* Test Item Value Reference Range Interpretation Comments THYROID STIMULATING HORMONE (test code = TSH) 2.20 IU/ML 0.47-5.0 1 N Result is in International Units/milliliter [id number] 11:13:00* Test Item Value Reference Range Interpretation Comments HGBA1C% (test code = HGBA1C%) 6.1 %A1C 4.8-6.0 H ESTIMATED AVERAGE GLUCOSE (test code = EAG) 128 MG/DL CBC W/AUTO [id number] 10:40:00* Test Item Value Reference Range Interpretation Comments WHITE BLOOD CELL (test code = WBC) 9.6 K/mm3 4.5-11.0 N RED BLOOD CELL (test code = RBC) 4.50 M/mm3 4.40-5.90 N HEMOGLOBIN (test code = HGB) 13.6 gm/dL 13.0-17.0 N HEMATOCRIT (test code = HCT) 43.0 % 36.0-48.0 N MEAN CELL VOLUME (test code = MCV) 95.6 UM3 80.0-94.0 H MEAN CELL HGB (test code = MCH) 30.2 UUG 25.5-32.5 N MEAN CELL HGB CONCETRATION (test code = MCHC) 31.6 gm/dL 29.0-35. 5 N RED CELL DISTRIBUTION WIDTH (test code = RDW) 14.0 % 11.5-15. 0 N RED CELL DISTRIBUTION WIDTH SD (test code = RDW-SD) 49.2 fL 34 .8-50.2 N PLATELET COUNT (test code = PLT) 186 K/mm3 150-400 N MEAN PLATELET VOLUME (test code = MPV) 10.1 fl 7.4-10.4 N NEUTROPHIL % (test code = NT%) 71.9 % 49.0-76.0 N IMMATURE GRANULOCYTE % (test code = IG%) 0.3 % 0.0-0.4 N LYMPHOCYTE % (test code = LY%) 17.5 % 23.0-38.0 L MONOCYTE % (test code = MO%) 8.3 % 1.0-10.0 N EOSINOPHIL % (test code = EO%) 1.6 % 1.0-5.0 N BASOPHIL % (test code = BA%) 0.4 % 0.0-1.0 N NEUTROPHIL # (test code = NT#) 6.9 K/mm3 2.4-6.3 H IMMATURE GRANULOCYTE # (test code = IG#) 0.03 x10 3/uL 0.00-0.07 N LYMPHOCYTE # (test code = LY#) 1.7 K/mm3 1.2-4.0 N MONOCYTE # (test code = MO#) 0.8 K/mm3 0.0-0.6 H EOSINOPHIL # (test code = EO#) 0.2 K/MM3 0.0-0.7 N BASOPHIL # (test code = BA#) 0.0 K/mm3 0.0-0.2 N [id number] 22:52:00* Test Item Value Reference Range Interpretation Comments TROPONIN-I (test code = TROPI) <0.02 NG/ML 0.00-0.06 N REFERENCE RANGE TROPONIN I HEALTHY INDIVIDUALS: <0.06 ng/mL R/O ISCHEMIA: 0.07 - 0.60 ng/mL CUT-OFF RANGE FOR AMI: 0.60 - 1.5 ng/mL [id number] 21:20:00* Test Item Value Reference Range Interpretation Comments TROPONIN-I (test code = TROPI) <0.02 NG/ML 0.00-0.06 N REFERENCE RANGE TROPONIN I HEALTHY INDIVIDUALS: <0.06 ng/mL R/O ISCHEMIA: 0.07 - 0.60 ng/mL CUT-OFF RANGE FOR AMI: 0.60 - 1.5 ng/mL PROTHROMBIN [id number] 14:28:00* Test Item Value Reference Range Interpretation Comments PROTHROMBIN TIME PATIENT (test code = PTP) 12.7 SECONDS 9.9-12.8 N INTERNATIONAL NORMAL RATIO (test code = INR) 1.1 0.89-1.14 N THE INR IS TO BE USED ONLY FOR MONITORING ORAL ANTICOAGULANTTHERAPY. THE FOLLOWING ARE SUGGESTED RANGES FROM THEAMERICAN COLLEGE OF CHEST PHYSICIANS:INDICATION INR VALUEPROPHYLAXIS OF VENOUS THROMBOSIS (ORTHOPEDIC SURGERY) 2.0 - 3.0PROPHYLAXIS OF VENOUS THROMBOSIS (OTHER THAN HIGH-RISK SURGERY) 2.0 - 3.0TREATMENT OF DEEP VEIN THROMBOSIS OR PULMONARY EMBOLISM 2.0 - 3.0PREVENTION OF SYSTEMIC EMBOLISM TISSUE HEART VALVES 2.0 - 3.0 ACUTE MYOCARDIAL INFARCTION (TO PREVENT SYSTEMIC EMBOLISM) 2.0 - 3.0 ACUTE MYOCARDIAL INFARCTION (TO PREVENT RECURRENT INFARCT) 2.5 - 3.0 VALVULAR HEART DISEASE 2.0 - 3.0 ATRIAL FIBRILATION 2.0 - 3.0BILEAFLET MECHANICAL VALVE IN AORTIC POSITION 2.0 - 3.0MECHANICAL PROSTHETIC VALVES (HIGH RISK) 2.5 - 3.5PRESENCE OF LUPUS ANTICOAGULANT OR ANTIPHOSPHOLIPID ANTIBODIES 2.5 - 3.5 THROMBOPLASTIN TIME [id number] 14:28:00* Test Item Value Reference Range Interpretation Comments THROMBOPLASTIN TIME PARTIAL (test code = PTT) 38.10 SECONDS 25.86-3 6.07 [facility] Therapeutic Range - APTT of 55.8-85.4 secondscorrelates with plasma heparin concentration of 0.2-0.4 u/mL New range effective - 05/16/2016 COMPREHENSIVE METABOLIC [id number] 14:21:00* Test Item Value Reference Range Interpretation Comments SODIUM (test code = NA) 137 mmol/l 134.0-147.0 N POTASSIUM (test code = K) 4.2 mmol/L 3.6-5.2 N CHLORIDE (test code = CL) 101 mmol/l 98.0-107.0 N CARBON DIOXIDE (test code = CO2) 28.2 mmol/l 21.0-33.0 N ANION GAP (test code = GAP) 12.0 0-20 N GLUCOSE (test code = GLU) 101 mg/dl 70.0-110.0 N BLOOD UREA NITROGEN (test code = BUN) 16 mg/dl 7.0-18.0 N CREATININE (test code = CREAT) 0.93 mg/dL 0.60-1.30 N GFR NON BLACK (test code = GFRNONBLACK) 87 mL/min 80-90 N GFR BLACK (test code = GFRBLACK) 106 mL/min 97-109 N TOTAL PROTEIN (test code = PROT) 7.1 GM/DL 6.0-8.1 N ALBUMIN (test code = ALB) 3.9 gm/dL 3.2-4.7 N CALCIUM (test code = CA) 8.5 mg/dl 8.0-10.5 N BILIRUBIN TOTAL (test code = BILT) 0.2 mg/dl 0.0-1.0 N SGOT/AST (test code = AST) 13 Units/L 15.0-37.0 L SGPT/ALT (test code = ALT) 25 Units/L 12.0-78.0 N ALKALINE PHOSPHATASE TOTAL (test code = ALKP) 83 Units/L 50.0-136 .0 N [id number] 14:21:00* Test Item Value Reference Range Interpretation Comments LIPASE (test code = LIP) 169 Units/L 65.0-230.0 N B-TYPE NATRIURETIC [id number] 14:21:00* Test Item Value Reference Range Interpretation Comments B-TYPE NATRIURETIC PEPTIDE (test code = BNP) 20.9 PG/ML 5-100 N CARDIAC ENZYMES [id number] 14:21:00* Test Item Value Reference Range Interpretation Comments CREATINE KINASE (CK) (test code = CK) 54 Units/L 39-308 N TROPONIN-I (test code = TROPI) <0.02 NG/ML 0.00-0.06 N REFERENCE RANGE TROPONIN I HEALTHY INDIVIDUALS: <0.06 ng/mL R/O ISCHEMIA: 0.07 - 0.60 ng/mL CUT-OFF RANGE FOR AMI: 0.60 - 1.5 ng/mL COMPREHENSIVE METABOLIC [id number] 14:20:00* Test Item Value Reference Range Interpretation Comments SODIUM (test code = NA) 137 mmol/l 134.0-147.0 N POTASSIUM (test code = K) 4.2 mmol/L 3.6-5.2 N CHLORIDE (test code = CL) 101 mmol/l 98.0-107.0 N CARBON DIOXIDE (test code = CO2) 28.2 mmol/l 21.0-33.0 N ANION GAP (test code = GAP) 12.0 0-20 N GLUCOSE (test code = GLU) 101 mg/dl 70.0-110.0 N BLOOD UREA NITROGEN (test code = BUN) 16 mg/dl 7.0-18.0 N CREATININE (test code = CREAT) 0.93 mg/dL 0.60-1.30 N GFR NON BLACK (test code = GFRNONBLACK) 87 mL/min 80-90 N GFR BLACK (test code = GFRBLACK) 106 mL/min 97-109 N TOTAL PROTEIN (test code = PROT) 7.1 GM/DL 6.0-8.1 N ALBUMIN (test code = ALB) 3.9 gm/dL 3.2-4.7 N CALCIUM (test code = CA) 8.5 mg/dl 8.0-10.5 N BILIRUBIN TOTAL (test code = BILT) 0.2 mg/dl 0.0-1.0 N SGOT/AST (test code = AST) 13 Units/L 15.0-37.0 L SGPT/ALT (test code = ALT) 25 Units/L 12.0-78.0 N ALKALINE PHOSPHATASE TOTAL (test code = ALKP) 83 Units/L 50.0-136 .0 N [id number] 14:20:00* Test Item Value Reference Range Interpretation Comments LIPASE (test code = LIP) 169 Units/L 65.0-230.0 N B-TYPE NATRIURETIC [id number] 14:20:00* Test Item Value Reference Range Interpretation Comments B-TYPE NATRIURETIC PEPTIDE (test code = BNP) PG/ML 5-100 CARDIAC ENZYMES [id number] 14:20:00* Test Item Value Reference Range Interpretation Comments CREATINE KINASE (CK) (test code = CK) 54 Units/L 39-308 N TROPONIN-I (test code = TROPI) <0.02 NG/ML 0.00-0.06 N REFERENCE RANGE TROPONIN I HEALTHY INDIVIDUALS: <0.06 ng/mL R/O ISCHEMIA: 0.07 - 0.60 ng/mL CUT-OFF RANGE FOR AMI: 0.60 - 1.5 ng/mL COMPREHENSIVE METABOLIC [id number] 14:11:00* Test Item Value Reference Range Interpretation Comments SODIUM (test code = NA) 137 mmol/l 134.0-147.0 N POTASSIUM (test code = K) 4.2 mmol/L 3.6-5.2 N CHLORIDE (test code = CL) 101 mmol/l 98.0-107.0 N CARBON DIOXIDE (test code = CO2) 28.2 mmol/l 21.0-33.0 N ANION GAP (test code = GAP) 12.0 0-20 N GLUCOSE (test code = GLU) mg/dl 70.0-110.0 BLOOD UREA NITROGEN (test code = BUN) mg/dl 7.0-18.0 CREATININE (test code = CREAT) mg/dL 0.60-1.30 GFR NON BLACK (test code = GFRNONBLACK) mL/min 80-90 GFR BLACK (test code = GFRBLACK) mL/min 97-109 TOTAL PROTEIN (test code = PROT) gm/dL 6.4-8.2 ALBUMIN (test code = ALB) gm/dl 3.2-4.7 CALCIUM (test code = CA) mg/dl 8.0-10.5 BILIRUBIN TOTAL (test code = BILT) mg/dl 0.0-1.0 SGOT/AST (test code = AST) Units/L 15.0-37.0 SGPT/ALT (test code = ALT) Units/L 12.0-78.0 ALKALINE PHOSPHATASE TOTAL (test code = ALKP) Units/L 50.0-136 .0 [id number] 14:11:00* Test Item Value Reference Range Interpretation Comments LIPASE (test code = LIP) Units/L 65.0-230.0 B-TYPE NATRIURETIC [id number] 14:11:00* Test Item Value Reference Range Interpretation Comments B-TYPE NATRIURETIC PEPTIDE (test code = BNP) PG/ML 5-100 CARDIAC ENZYMES [id number] 14:11:00* Test Item Value Reference Range Interpretation Comments CREATINE KINASE (CK) (test code = CK) Units/L 39-308 TROPONIN-I (test code = TROPI) NG/ML 0.00-0.06 CBC W/AUTO [id number] 14:09:00* Test Item Value Reference Range Interpretation Comments WHITE BLOOD CELL (test code = WBC) 11.3 K/mm3 4.5-11.0 H RED BLOOD CELL (test code = RBC) 4.61 M/mm3 4.40-5.90 N HEMOGLOBIN (test code = HGB) 13.9 gm/dL 13.0-17.0 N HEMATOCRIT (test code = HCT) 43.1 % 36.0-48.0 N MEAN CELL VOLUME (test code = MCV) 93.5 UM3 80.0-94.0 N MEAN CELL HGB (test code = MCH) 30.2 UUG 25.5-32.5 N MEAN CELL HGB CONCETRATION (test code = MCHC) 32.3 gm/dL 29.0-35. 5 N RED CELL DISTRIBUTION WIDTH (test code = RDW) 14.2 % 11.5-15. 0 N RED CELL DISTRIBUTION WIDTH SD (test code = RDW-SD) 47.9 fL 34 .8-50.2 N PLATELET COUNT (test code = PLT) 205 K/mm3 150-400 N MEAN PLATELET VOLUME (test code = MPV) 10.0 fl 7.4-10.4 N NEUTROPHIL % (test code = NT%) 65.2 % 49.0-76.0 N IMMATURE GRANULOCYTE % (test code = IG%) 0.6 % 0.0-0.4 H LYMPHOCYTE % (test code = LY%) 20.6 % 23.0-38.0 L MONOCYTE % (test code = MO%) 11.7 % 1.0-10.0 H EOSINOPHIL % (test code = EO%) 1.5 % 1.0-5.0 N BASOPHIL % (test code = BA%) 0.4 % 0.0-1.0 N NEUTROPHIL # (test code = NT#) 7.4 K/mm3 2.4-6.3 H IMMATURE GRANULOCYTE # (test code = IG#) 0.07 x10 3/uL 0.00-0.07 N LYMPHOCYTE # (test code = LY#) 2.3 K/mm3 1.2-4.0 N MONOCYTE # (test code = MO#) 1.3 K/mm3 0.0-0.6 H EOSINOPHIL # (test code = EO#) 0.2 K/MM3 0.0-0.7 N BASOPHIL # (test code = BA#) 0.0 K/mm3 0.0-0.2 N - XR CHEST 1 [id number] 12:21:00 FAX: Elinor Henry [phone] [place]: St: PRE FAX: Nina Trujillo MD Name: HALEY ROACH [facility] : 1955 Age/S: 63/M [address] [facility] [employer] [facility] Unit #: [id number] Loc: [address] Phys: [place] [id number] Acct: [id number] Dis Date: Status: PRE ER PHONE #: [phone] Exam Date: 11/11/2018 1219 FAX #: [phone] Reason: EDEMA EXAMS: CPT CODE: [id number] XR CHEST 1 V [id number] Location: T 18 CHEST, ONE VIEW History: Edema Comparison: None Findings: No focal airspace consolidation pleural effusion or pneumothorax. Mild scattered linear atelectasis involves the left lower lung. Cardiomediastinal silhouette is normal. Note multiple old left-sided rib fractures with residual deformity. Impression: Minimal atelectasis, left lower lung. at 1221 Reported and signed by: Maria Luisa Navarro M.D. CC: Elinor Alexander MD; Nina Gonzalez MD Technologist: WES LAWS [facility] Date/Time/By: 11/11/2018 (1221) : By: BridgetEFM PAGE 1 Signed Report FAX: Elinor Henry [phone] [place]: St: PRE FAX: Nina Trujillo MD Name: HALEY ROACH [facility] : 1955 Age/S: 63/M [address] [facility] Unit #: [id number] Loc: E.ERS2 [place], [place] Phys: [place] [id number] Acct: [id number] Dis Date: Status: PRE ER PHONE #: [phone] Exam Date: 11/11/2018 1219 FAX #: Reason: EDEMA EXAMS: CPT CODE: [id number] XR CHEST 1 V [id number] <Continued> Orig Print D/T: S: 11/11/2018 (9975) PAGE 2 Signed Report - XR HAND 3 + V [id number] 17:16:00 FAX: Ira Rey [phone] [place]: St: PRE FAX: Chasity Pelayo MD [phone] FAX: Barrett Villagran MD [phone] Name: HALEY ROACH [facility] : 1955 Age/S: 63/M [address] [facility] Unit #: [id number] Loc: E.EXP [place], [place] Phys: KrissyIra Britt RISK ASSESSOR [id number] Acct: [id number] Dis Date: Status: PRE ER PH ONE #: [phone] Exam Date: 10/15/2018 1705 FAX #: [phone] Reason: pain to limb EXAMS: CPT CODE: [id number] XR HAND 3 + [place] [id number] Location of di ctation: B2 Right hand 3 views HISTORY: Pain, possi ble fracture. COMMENT: There is no obvious fracture or dislocation . There are degenerative changes involving the right wrist with fusion of the radiocarpal joint, some intercarpal fusion and narrowing of the carpometacarpal joints. Some fusion of the 1st and 2nd metacarpals also noted. There may be mild swelling of the hand. Vascular calcifications a re noted. No focal lesion or destructive process seen. IM PRESSION: Marked degenerative changes of the right wrist with no acute f indings. at 1716 Reported and signed by: Gege Valdivia M.D. CC: Halima Perez NP; Chasity Pelayo MD; Barrett Bañuelos MD Technologist: CHASE MACHUCAON Trnscrd Date/Time/By: 10/15/2018 (779 6) : By: Murtaza PAGE 1 Signed Report FAX: Ira Rey [phone] [place] us: St: PRE FAX: Chasity Pelayo MD [phone] FAX: Barrett Welsh MD [phone] Name: HALEY ROACH [facility] : 1955 Age/S: 63/M [address] [facility] Unit #: [id number] Loc: E.EXP [facility] Phys: Ira Rey RISK ASSESSOR [id number] Acct: [id number] Dis Date: Status: PRE ER PHONE #: [phone] Exam Date: 10/15/2018 1 705 FAX #: [phone] Reason: pain to limb EXAMS: CPT CODE: [id number] XR HAND 3 + V RT [id number] <Continued> Orig Print D/T: S: 10/15/2018 (9407) PAGE 2 Signed Report
[2019-10-22 12:11] VITALS: BP 137/69
[2019-10-22 12:15] VITALS: BP 137/69
--- NOTE | 2019-10-22 12:34 | NUR ---
ASSUMED CARE. PATIENT ARRIVED TO UNIT VIA STRETCHER AT 1201. AAOX3. ACYANOTIC. NO BLEEDING NOTED TO ABDOMEN. CALL LIGHT IN REACH. SIDE RAILS UP X2. BED LOW AND LOCKED.
--- NOTE | 2019-10-22 12:38 | Operative Report ---
DATE OF PROCEDURE: 10/22/2019 SURGEON: Castro Schaeffer MD PREOPERATIVE DIAGNOSES: 1. Morbid obesity, BMI 48. 2. Type 2 diabetes mellitus. 3. Hypertension. POSTOPERATIVE DIAGNOSES: 1. Morbid obesity, BMI 48. 2. Type 2 diabetes mellitus. 3. Hypertension. PREOPERATIVE INDICATION: Treat disease, prevent complications related to comorbid conditions of obesity. PROCEDURES: Laparoscopic vertical sleeve gastrectomy. ANESTHESIA: General. PRESS READER: Nitin Catalan, recovery assistant (needed due to complexity of case). FLUIDS: 500 mL of crystalloid. ESTIMATED BLOOD LOSS: 15 mL. DRAINS: None. COMPLICATIONS: None. SPECIMENS: Partial stomach. GRAFTS: None. FINDINGS: 1. Normal upper GI anatomy. 2. Negative intraoperative leak test. PROCEDURE IN DETAIL: The patient was brought to the operating room and was intubated under general endotracheal anesthesia. He was positioned in supine, both arms were abducted and all pressure points were appropriately padded. He was sterilely prepped and draped in the usual fashion. A preprocedure pause was performed identifying the patient, use of perioperative antibiotics, intended procedure, and staff surgeon. Access was gained via a 5 mm left subcostal incision using a Veress needle. The abdomen was insufflated. Four additional trocars were placed in standard positions. The liver retractor was used to expose the stomach. The patient had abundant intraabdominal adiposity, which made dissection and exposure much more difficult. I was able to mobilize the greater curvature of stomach from 3 cm proximal to the pyloric valve to the left javier of the diaphragm using the [place] LigaSure device. I had to ligate the posterior short gastric and short gastric vessels in order to free up the proximal fundus. Once this was completed, a 32-[place]izen [place] sizing bougie was placed along the lesser curvature of the stomach. The greater curvature of the stomach was resected with multiple firings of a 60 mm purple load. [employer] stapling device which was reinforced with TRS. Once that was completed, we conducted intraoperative leak test, no leaks were identified. There was a small rent in the liver, which was electrocoagulated. Hemostasis was verified. The specimen was removed through the right periumbilical port site. The port site was closed with 0 Vicryl suture using the Leon Jacobs technique. We then desufflated the abdomen, removed the trocars. Incision sites were closed with 4-0 Monocryl suture in a subcuticular fashion. Liver retractor was removed. Incision sites were closed with 4-0 Monocryl suture in a subcuticular fashion. Dermabond dressings were applied. A 0.25% bupivacaine was used both at the preperitoneal incision sites. The patient tolerated the procedure well. Type of wound was type 2, clean, contaminated. All surgical sponge and instruments counts were correct. MD PK Thompson/JHOANAL /[id number]
[2019-10-22] MEDS: LACTATED RINGER'S 1,000 ML IV SCH ×2 (12:43→20:08)
--- NOTE | 2019-10-22 13:39 | History and Physical ---
CHIEF COMPLAINT: "I had weight loss surgery." HISTORY OF PRESENT ILLNESS: This is a 64-year-old white man, who was admitted to [facility] with a diagnosis of extreme obesity, BMI of 44, complicated underlying hypertension, type 2 diabetes mellitus, and sleep apnea. Today, the patient underwent successful laparoscopic sleeve gastrectomy that was performed by Dr. Castro Schaeffer. The patient tolerated surgery well. The patient states that for the last hour he has had nonradiating midepigastric pain that is not associated with chest tightness, shortness of breath, or cough. He denies any nausea or vomiting. REVIEW OF SYSTEMS: GENERAL: Weight has been stable. No fever or chills. HEENT: No headaches no visual changes CARDIOVASCULAR: No chest pain. No shortness of breath or cough. GI: The patient complains of nonradiating midepigastric pain that began approximately an hour ago. Denies any belching or flatus. Denies any nausea, vomiting, or diarrhea. He does have chronic constipation. : No Vance catheter in place. NEUROMUSCULAR: No limb weakness or numbness. ALLERGIES: NO KNOWN DRUG ALLERGIES. HOME MEDICATIONS: 1. Allopurinol 300 mg daily. 2. Amiodarone 200 mg daily. 3. Amlodipine 10 mg daily. 4. Apixaban 5 mg b.i.d. 5. Diltiazem extended release 240 mg once daily. 6. Trelegy Ellipta inhaler one puff daily. 7. Furosemide 40 mg daily. 8. Lisinopril 40 mg daily. 9. Lovastatin 10 mg at bedtime. 10. Amitiza 24 mcg twice a day. 11. Metformin 500 mg daily. 12. Pregabalin 100 mg daily. FAMILY HISTORY: Mother and older brother of myocardial infarction. SOCIAL HISTORY: He is and lives with his . He is retired truck terminal manager and singletary. He was heavy tobacco smoker, but quit in 2004. The patient states he drinks beer on a regular basis, usually 6 bottles of beer once a week with each bottle being 12 ounces of volume. This man lives with his in [place], [place]. PAST SURGICAL HISTORY: 1. Laparoscopic sleeve gastrectomy today. 2. Bilateral cataract surgery. 3. Bilateral lower leg vein surgery. 4. Right hand surgery. 5. Abdominal hernia repair. 6. Left carotid endarterectomy. PAST MEDICAL HISTORY: 1. Obstructive sleep apnea (the patient uses CPAP at night when he sleeps). 2. Extreme obesity, BMI 44. 3. Hypertensive heart disease. 4. Type 2 diabetes mellitus. 5. Diabetic peripheral neuropathy. 6. Hyperlipidemia. 7. Hyperuricemia. 8. Chronic constipation. 9. Chronic bronchitis. 10. Paroxysmal atrial fibrillation (the only bout was in 2017). PHYSICAL EXAMINATION: GENERAL: He is awake, alert. He is fully oriented. He is in no distress. VITAL SIGNS: Height 5 feet 10 inches, weight is 306 pounds, BMI 44. Blood pressure is 130/68, pulse 66, respiratory rate 18, oxygen saturation 95% on room air, temperature 97.6. INTEGUMENT: Skin is warm and dry. No pallor, jaundice or diaphoresis. HEENT: Anterior sclerae with moist mucous membranes. NECK: Supple. No evidence of jugular venous distention. CARDIOVASCULAR: Distant heart sounds. Regular rate and rhythm with an S3 gallop. LUNGS: No rales. No rhonchi. No wheezes. ABDOMEN: Obese yet benign. He does have tenderness when palpating the midepigastric area. No bowel sounds are auscultated. The patient's laparoscopic incisions are clean, dry, and intact. No edema in legs. He is wearing sequential compression devices. NEUROLOGICAL: Intact. DIAGNOSES: 1. Status post laparoscopic sleeve gastrectomy today. 2. Extreme obesity, BMI 44, complicating underlying hypertension, type 2 diabetes, and sleep apnea. 3. Hypertensive heart disease. 4. Type 2 diabetes with neuropathy. 5. Chronic bronchitis. 6. Chronic diastolic congestive heart failure, likely. 7. Midepigastric pain, likely GERD. PLAN: 1. We will order 12-lead EKG. 2. Order chest film. 3. Restart home medications. 4. Order intravenous famotidine. 5. Restart apixaban in the form of Eliquis. 6. We will encourage incentive spirometer usage to prevent atelectasis. 7. Mobilize patient. 8. Blood glucose monitoring and control. I would like to thank, Dr. Castro Schaeffer for involving me in the care of this patient. MD JOSE Corral/BONNY /[id number] MTDVickie
[2019-10-22] MEDS: FAMOTIDINE 20 MG/2 ML VIAL IV SCH ×2 (13:53→21:00)
[2019-10-22] MEDS: MORPHINE SULFATE 2 MG/ML SYR 1ML IV PRN ×3 (13:54→20:09)
[2019-10-22] MEDS ORDERED: MAGNESIUM/ALUMINUM/SIMETHICONE 30 ML UDC PO ONE (14:00)
[2019-10-22] MEDS ORDERED: MIDAZOLAM HCL 2 MG/2 ML VIAL ONE (14:15)
[2019-10-22] MEDS ORDERED: ROCURONIUM BROMIDE 10 MG/ML 5ML VIAL IV ONE (14:28)
[2019-10-22] MEDS ORDERED: DEXAMETHASONE SOD PHOS INJ 4 MG/ML VIAL ONE (14:28)
[2019-10-22] MEDS ORDERED: ACETAMINOPHEN 1000 MG/100 ML IV ONE (14:28)
[2019-10-22] MEDS ORDERED: ETOMIDATE 2 MG/ML 10 ML INJ IV ONE (14:28)
[2019-10-22] MEDS ORDERED: NEOSTIGMINE 1 MG/ML 10ML VIAL ONE (14:28)
[2019-10-22] MEDS ORDERED: PROPOFOL IV EMULSION 10 MG/ML 20 ML VIAL ONE (14:28)
[2019-10-22] MEDS ORDERED: GLYCOPYRROLATE INJ 0.2 MG/ML VIAL ONE (14:28)
[2019-10-22] MEDS ORDERED: SEVOFLURANE INHAL SOLN 250 ML PEN BTL ONE (14:28)
--- NOTE | 2019-10-22 14:43 | Diagnostic Imaging Report ---
EXAMINATION: CHEST SINGLE (PORTABLE) INDICATION: CHF COMPARISON: None FINDINGS: LINES/TUBES:None LUNGS:The lungs are well-inflated. Peripheral left lung base opacity. PLEURA:No pleural effusion or pneumothorax. MEDIASTINUM:The cardiomediastinal silhouette appears normal in size and shape. BONES/SOFT TISSUES:No acute osseous injury. ABDOMEN:No free air under the diaphragm. IMPRESSION: Peripheral left lung base opacity, concerning for pneumonia in the proper clinical setting. No pulmonary edema. Signed by: Ajay Robison MD on 10/22/2019 2:40 PM
[2019-10-22 16:02] VITALS: BP 130/68
[2019-10-22 19:28] VITALS: BP 125/62
--- NOTE | 2019-10-22 19:51 | NUR ---
RECEIVED PT IN BED AOX3 ,RESPIRATIONS ARE EVEN AND UNLABORED .PT HAD GASTRIC LAVAGE AND HAS 5 TROCHANTER SITES .PT C/I PAIN RT AC 20 G INFUSING LR 125 CC/HR ,CALL LIGHT WITH IN REACH , PT C/O PAIN .CONTINUE TO MONITOR
[2019-10-22] MEDS ORDERED: ENOXAPARIN SOD INJ 40 MG/0.4 ML SYR SC SCH (20:00)
[2019-10-22 20:46] VITALS: BP 125/62
[2019-10-22] MEDS ORDERED: SIMVASTATIN 20 MG TAB PO SCH (21:00)
[2019-10-23 00:29] VITALS: BP 102/51
[2019-10-23] MEDS: LACTATED RINGER'S 1,000 ML IV SCH ×2 (02:00→10:00)
[2019-10-23 05:05] VITALS: BP 129/70
[2019-10-23 05:11] LABS: BASOPHILS % 0.3 % (0.0-1.0); HEMATOCRIT 38.8 % (38.2-49.6); HEMOGLOBIN 12.9 g/dL (14.0-18.0); LYMPHOCYTES # (AUTO) 1.3 (1.0-3.2); MEAN CORPUSCULAR HEMOGLOBIN 30.7 pg (28-32); MEAN CORPUSCULAR HGB CONC 33.2 g/dL (31-35); MEAN CORPUSCULAR VOLUME 92.4 fL (81-99); MONOCYTES # (AUTO) 0.9 (0.2-0.8); MONOCYTES % 7.3 % (4.4-11.3); NEUTROPHILS # (AUTO) 9.9 (2.1-6.9); PLATELET COUNT 203 x10e3/uL (140-360); RED CELL DISTRIBUTION WIDTH 13.8 % (11.7-14.4)
[2019-10-23 05:30] LABS: ALANINE AMINOTRANSFERASE 23 IU/L (0-55); ALBUMIN 3.5 g/dL (3.5-5.0); ALBUMIN/GLOBULIN RATIO 1.1 (0.8-2.0); ALKALINE PHOSPHATASE 76 IU/L (40-150); ANION GAP 15.6 mmol/L (8-16); BLOOD UREA NITROGEN 10 mg/dL (7-26); BUN/CREATININE RATIO 12 (6-25); CALCIUM 8.8 mg/dL (8.4-10.2); CARBON DIOXIDE 23 mmol/L (22-29); CHLORIDE 101 mmol/L (98-107); CREATININE, SERUM 0.82 mg/dL (0.72-1.25); EST GLOMERULAR FILTRATION RATE > 60 ML/MIN (60-); GLUCOSE 142 mg/dL (74-118); PHOSPHORUS 3.2 MG/DL (2.3-4.7); POTASSIUM 4.6 mmol/L (3.5-5.1); SODIUM 135 mmol/L (136-145)
--- NOTE | 2019-10-23 05:57 | NUR ---
PT DENIES PAIN ,NO ACUTE DISTRESS NOTED ,CALL LIGHT WITH IN REACH ,CONTINUE TO MONITOR
[2019-10-23] MEDS ORDERED: HYDROCODONE/APAP 7.5MG-325MG 1 EA TAB PO PRN (07:00)
--- NOTE | 2019-10-23 07:24 | NUR ---
BEDSIDE REPORT GIVEN TO THE ONCOMING NURSE
[2019-10-23] MEDS: ALBUTEROL/IPRATROPIUM 3 ML NEB NEB SCH ×2 (07:30→11:20)
[2019-10-23] MEDS ORDERED: METFORMIN HCL 500 MG TAB CR PO SCH (08:00)
[2019-10-23] MEDS ORDERED: LEVOFLOXACIN 750MG/D5W 150ML 150 ML IV SCH (08:00)
[2019-10-23] MEDS: MORPHINE SULFATE 2 MG/ML SYR 1ML IV PRN (08:07)
[2019-10-23 08:09] VITALS: BP 126/66
[2019-10-23] MEDS: FAMOTIDINE 20 MG/2 ML VIAL IV SCH (08:10)
[2019-10-23 08:25] VITALS: BP 126/66
--- NOTE | 2019-10-23 08:37 | Discharge Summary ---
ADMIT DIAGNOSES: 1. Extreme obesity, BMI of 44 complicating underlying hypertension, sleep apnea and type 2 diabetes. 2. Hypertensive heart disease. 3. COPD. 4. Type 2 diabetes mellitus. 5. Obstructive sleep apnea. DISCHARGE DIAGNOSES: 1. Status post laparoscopic sleeve gastrectomy. 2. Extreme obesity, BMI of 44, complicating underlying hypertension, type 2 diabetes mellitus, and sleep apnea. 3. Left lower lobe pneumonia, likely healthcare related. 4. Hypertensive heart disease. 5. Obstructive sleep apnea. 6. Type 2 diabetes mellitus. 7. COPD. HOSPITAL COURSE: This is a 64-year-old white man, who initially admitted to [facility] with diagnosis of extreme obesity, BMI of 44. It was complicating his underlying sleep apnea, type 2 diabetes mellitus, and hypertension. During his hospitalization he underwent successful laparoscopic sleeve gastrectomy, this was performed by Dr. Castro Schaeffer. However, during this hospital stay he developed chest discomfort that did resolve with intravenous famotidine and oral Maalox. However, chest x-ray did reveal peripheral left lung basilar opacity that was not present on chest film performed on October 17, 2019. On the day of discharge, white blood cell count was 12,200 with 81% segmented neutrophils. The patient did notice slight cough, but he stated that his chronic shortness of breath and wheezing was not worse than usual. His COVID test performed on October 17, 2019, was negative. Prior to leaving the patient did receive one dose of intravenous levofloxacin. CONDITION ON DISCHARGE: Stable. He is tolerating a full liquid diet on discharge. DISCHARGE MEDICATIONS: 1. Levofloxacin 750 mg once daily for 7 days. 2. Tylenol #3 one pill every 4 hours p.r.n. pain, 30 prescribed. 3. Zofran 4 mg one pill every 6 hours p.r.n. nausea and vomiting, 20 prescribed. 4. Simvastatin 10 mg at bedtime. 5. Lisinopril 40 mg daily. 6. Diltiazem ER 240 mg daily. 7. Pregabalin 100 mg daily. 8. Metformin 500 mg daily. 9. Furosemide 40 mg daily. 10. Apixaban 5 mg b.i.d. 11. Amlodipine 10 mg daily. 12. Amiodarone 200 mg daily. 13. Allopurinol 300 mg daily. FOLLOWUP INSTRUCTIONS: The patient instructed to follow up with his primary care physician within 1 week. I instructed him to inform my office if he develops more shortness of breath, fever or purulent sputum. The patient will follow up with Dr. Castro Schaeffer also within 1 week. Also, the patient was instructed to continue using his incentive spirometer 10 times every hour while awake for the next week. MD JOSE Corral/BONNY /[id number] cc: Castro Schaeffer MD MTDD
--- NOTE | 2019-10-23 08:50 | NUR ---
Progress note S: No major complaints O: AF, VSS; CXR showed possible developing pneumonia in left lung General- no distress Abdomen- soft, incisions c/d/i A/P: POD 1, s/p Lap sleeve gastrectomy for morbid obesity, HTN, DM -Clears, ambulate, IS, OOB to chair -Dr. Brown sending home with antibiotics for the pneumonia -F/u with me in 1-2 weeks -Diet instructions given to patient
[2019-10-23] MEDS ORDERED: PREGABALIN 50 MG CAP PO SCH (09:00)
[2019-10-23] MEDS ORDERED: DILTIAZEM HCL ER 120 MG CAP PO SCH (09:00)
[2019-10-23] MEDS ORDERED: ALLOPURINOL 300 MG TAB PO SCH (09:00)
[2019-10-23] MEDS ORDERED: AMLODIPINE BESYLATE 10 MG TAB PO SCH (09:00)
[2019-10-23] MEDS ORDERED: LISINOPRIL 10 MG TAB PO SCH (09:00)
[2019-10-23] MEDS ORDERED: APIXABAN 5 MG TABLET PO SCH (09:00)
[2019-10-23] MEDS ORDERED: DILTIAZEM HCL CR 120MG TAB PO SCH (09:00)
[2019-10-23] MEDS ORDERED: FUROSEMIDE 40 MG TAB PO SCH (09:00)
[2019-10-23] MEDS ORDERED: AMIODARONE HCL 200 MG TAB PO SCH (09:00)
[2019-10-23] MEDS ORDERED: LISINOPRIL 20 MG TAB PO SCH (09:00)
--- NOTE | 2019-10-23 10:57 | NUR ---
Nutrition Screen Note RD Recommendation for Physician: - Advance diet as tolerated to full liquids per MD discretion Plan of Care: RD following, monitoring for tolerance and adequacy - diet education provided 10/22 Nutrition reason for involvement: MD Consult- diet education Primary Diagnose(s): lap-sleeve gastrectomy PMH: abd hernia repair, bilateral lower leg vein surgery Ht: 70 in Wt: 306 lb BMI: 43.9 kg/m2 IBW: [address] Assessment: (10/22) 64 YOM admitted for lap-sleeve gastrectomy, seen today for diet education. Pt tolerating CLD and pending discharge. Pt educated on bariatric diet progression and supplement recommendations provided. All questions and concerns addressed at time of visit. Chart reviewed. Labs and meds reviewed. Current Diet: bariatric CLD Malnutrition Evaluation (10/23/19) The patient does not meet criteria for a specified degree of malnutrition at this time. Will re-evaluate at follow-up as appropriate. Diet Education Needs Assessment: Diet education indicated, pt receptive Learner(s): pt Barriers: none Cultural/Language Modifications: none Readiness: ready Method: handout, discussion Topics: post operative bariatric diet progression, supplementation Understanding/Compliance: good Diet tolerance: tolerating CLD Nutrition Care Level: low Signed: Lizbeth Abraham RD, LD, CNSC
[2019-10-23 11:28] VITALS: BP 120/65
== END 2019-10-23 12:31 | disposition home or self-care (01) | DRG 619 ==
LOC: OR 07:40 → PACU V 11:40 → MED/SURG 12:02
PROVIDERS: ADMIT Internal Medicine; ATTEND Internal Medicine
PROC: 0DB64Z3 Excision of Stomach, Percutaneous Endoscopic Approach, Vertical (ICD-10-PCS; principal; 2019-10-22 08:30)
DX: E66.01 Morbid (severe) obesity due to excess calories (principal); J18.9 Pneumonia, unspecified organism; I50.32 Chronic diastolic (congestive) heart failure; J44.0 Chronic obstructive pulmonary disease with (acute) lower respiratory infection; Z68.42 Body mass index [BMI] 45.0-49.9, adult; E11.9 Type 2 diabetes mellitus without complications; G47.33 Obstructive sleep apnea (adult) (pediatric); E78.5 Hyperlipidemia, unspecified; E79.0 Hyperuricemia without signs of inflammatory arthritis and tophaceous disease; J40 Bronchitis, not specified as acute or chronic; I48.0 Paroxysmal atrial fibrillation; Z79.01 Long term (current) use of anticoagulants; K59.09 Other constipation; E11.42 Type 2 diabetes mellitus with diabetic polyneuropathy; Z79.4 Long term (current) use of insulin; I11.0 Hypertensive heart disease with heart failure; K21.9 Gastro-esophageal reflux disease without esophagitis; Z11.59 Encounter for screening for other viral diseases
CPT/HCPCS: 36415; 71045; 71046; 80048; 80053; 82948; 83735; 83880; 84100; 85025; 93005; 94640; J0690; J1100; J1650; J2250; J2270; J2405; J2550; J2710; J3010; J7121; U0002